=== PATIENT | male | born 1960 | race Hispanic/Latino ===

== ENCOUNTER → 2018-07-28 | Day surgery (SDC) | payer BC ==
[~2018-07-28] MED LIST: CHLORTHALIDONE25 MG; FENTANYL CITRATE/PF 100MCG/2 ML INJ ONE; HYOSCYAMINE SULFATE 0.5 MG/ML INJ ONE; LIDOCAINE HCL 2% LOCAL INJ 5 ML SDV VIAL INJ ONE; MIDAZOLAM HCL 2 MG/2 ML VIAL ONE; PROPOFOL IV EMULSION 10 MG/ML 50 ML VIAL ONE
[2018-07-28 19:00] VITALS: BP 148/99
--- NOTE | 2018-07-29 00:51 | Operative Report ---
DATE OF PROCEDURE: 07/28/2018 SURGEON: Benjy Small MD PROCEDURE: Colonoscopy and polypectomy. INDICATIONS FOR COLONOSCOPY: Colorectal cancer screening. MEDICATIONS: The patient was done under MAC, please see anesthesiologist's note. PROCEDURE IN DETAIL: With the patient in left lateral decubitus position, a flexible fiberoptic Olympus colonoscope was inserted into the rectum with ease and advanced all the way to the cecum. Minute polyps were hot biopsied from the cecum. Both sides were hemoclipped. One polyp was snared from the ascending colon. The transverse grossly appeared to be within normal limits. The left colon revealed some patchy mild to moderate inflammatory changes involving the left colon and the rectum, multiple random biopsies were obtained. Minimal scattered diverticular disease also noted. The scope was then retroflexed into the distal rectum and small internal hemorrhoids were noted, none of which was actively bleeding. The scope was then straightened out, it was subsequently withdrawn, patient tolerated the procedure well. IMPRESSION: 1. Cecal polyps x2 hot biopsied, both sites hemoclipped. 2. Ascending colon polyp snared. 3. Mild patchy left-sided colitis. 4. Scattered minimal diverticular disease. 5. Proctitis, mild. 6. Internal hemorrhoids, none actively bleeding. PLAN: Follow up histology. Initiate high-fiber, low-fat diet. Initiate high-fiber supplement. The patient might benefit from a followup colonoscopy in 3 to 5 years. Benjy Small MD [facility] [place] /[id number] cc: Sal Anderson DO
== END | disposition home or self-care (01) ==
LOC: OR 14:06
PROVIDERS: ATTEND Internal Medicine Gastroenterology
DX: Z12.11 Encounter for screening for malignant neoplasm of colon (principal); K63.5 Polyp of colon; K51.50 Left sided colitis without complications; K62.89 Other specified diseases of anus and rectum; K64.8 Other hemorrhoids; K57.30 Diverticulosis of large intestine without perforation or abscess without bleeding; I10 Essential (primary) hypertension; Z01.810 Encounter for preprocedural cardiovascular examination
CPT/HCPCS: 45384; 45385; 93005; J1980; J2001; J2250; J2704; 45378; 45380